=== PATIENT | male | born 1980 | race Caucasian/White ===

== ENCOUNTER 2024-12-15 07:47 | Outpatient (CLI) | payer OTHER | END 2024-12-15 07:48 | disposition home or self-care (01) | LOC: BICCT 07:47 | PROVIDERS: ATTEND Family Medicine | DX: Z13.6 Encounter for screening for cardiovascular disorders (principal); E78.5 Hyperlipidemia, unspecified; I70.90 Unspecified atherosclerosis | CPT/HCPCS: 75571 ==